=== PATIENT | female | born 1995 | race African-American/Black ===

== ENCOUNTER 2024-07-14 08:31 | Outpatient (CLI) | payer BC, SELFPAY ==
--- NOTE | ~2024-07-14 | US_ITS ---
EXAMINATION: US soft tissue UE LT DATE: 07/14/2024 09:07 INDICATION: Left upper limb mass. TECHNIQUE: Multiple grayscale and Doppler ultrasound images of the left upper limb were obtained. COMPARISON: None FINDINGS: There is no abnormal mass in the patient's area of concern in left upper arm. IMPRESSION: 1. No abnormal mass in the patient's area of concern in left upper arm. Reviewed, dictated and finalized at location A.
== END 2024-07-14 08:32 | disposition home or self-care (01) ==
PROVIDERS: PCP Nurse Practitioner Family; Visit Provider Nurse Practitioner Family
DX: M79.89 Other specified soft tissue disorders (principal)
CPT/HCPCS: 76882